=== PATIENT | female | born 1975 | race Caucasian/White ===

== ENCOUNTER 2016-10-31 23:04 | Emergency (ER) | payer OTHER ==
[2016-11-01 06:58] LABS: Appearance,Urine Clear (Clear); Bilirubin,Urine Negative (Negative); Glucose,Urine (UA) Negative (Negative); Ketones,Urine Trace (Negative); Leukocyte Esterase,Urine Negative (Negative); Mucus,Urine Rare /hpf; Nitrite,Urine Negative (Negative); PH, Urine 5.5 (5.0-8.0); Particle Count 2370; Protein,Urine Negative (Negative); RBC,Urine <1 /hpf (0-5); Specific Gravity,Urine 1.022 (1.001-1.035); Squamous Epithelial Cell,Urine 5 /hpf (0-4); UA Billing (MACRO vs. MICRO) CHEM; Urobilinogen,Urine <2.0 mg/dL (<2.0); WBC,Urine 1 /hpf (0-5)
--- NOTE | 2016-11-01 11:29 | US ---
EXAMINATION TYPE: US OB <= 14 wk fetus DATE OF EXAM: 11/01/2016 8:29 AM COMPARISON: NONE CLINICAL HISTORY: Left sided cramping. EXAM PERFORMED: Transabdominal Ultrasound EXAM MEASUREMENTS: GESTATIONAL AGE / DATING Physician Established: Not Established Dates by LMP: Unknown Dates by First Scan: No previous. Dates by Current Scan for: (10 weeks/6 days) EDC: 05/23/2017 MATERNAL ANATOMY Uterus: 8.6 x 6.3 x 7.8 cm Right Ovary: 3.5 x 2.0 x 1.9 cm Left Ovary: 3.1 x 1.5 x 1.9 cm Post CDS / Adnexa: WNL Presence of free fluid: No Presence of corpus luteal cyst: No Presence of subchorionic bleed: No GESTATION / SURVEY CRL: 3.9 (10 weeks/6 days) Yolk Sac (normal less than 6mm): 4 mm Heart Rate: 174 bpm Rhythm: Normal IUP: Single Date of LMP: Unknown Beta HcG (if available): Not available Viable IUP with an SINCERE of 05/23/2017 on this exam. IMPRESSION: The ultrasound gestational age is 10 weeks 6 days. I see no complicating process.
--- NOTE | 2016-11-13 15:20 | ED ---
Female Urogenital HPI - General Source: RN notes reviewed, old records reviewed - History of Present Illness Initial comments: This is a 41-year-old female presenting to emergency Department with chief complaint of vaginal bleeding and lower abdominal cramping for approximately one day. Patient reports that she is currently . She denies any fever or chills. He denies any dysuria or nausea or vomiting. She denies any vaginal discharge. Review of Systems ROS Statement: Those systems with pertinent positive or pertinent negative responses have been documented in the HPI. ROS Other: All systems not noted in ROS Statement are negative. General Exam General appearance: alert, in no apparent distress Head exam: Present: atraumatic, normocephalic, normal inspection Eye exam: Present: normal appearance, PERRL, EOMI. Absent: scleral icterus, conjunctival injection, periorbital swelling ENT exam: Present: normal exam, mucous membranes moist Neck exam: Present: normal inspection. Absent: tenderness, meningismus, lymphadenopathy Respiratory exam: Present: normal lung sounds bilaterally. Absent: respiratory distress, wheezes, rales, rhonchi, stridor Cardiovascular Exam: Present: regular rate, normal rhythm, normal heart sounds. Absent: systolic murmur, diastolic murmur, rubs, gallop, clicks GI/Abdominal exam: Present: soft, normal bowel sounds. Absent: distended, tenderness, guarding, rebound, rigid External exam: Present: normal external exam Speculum exam: Present: normal speculum exam By manual exam: Present: normal by manual exam Extremities exam: Present: normal inspection, full ROM, normal capillary refill. Absent: tenderness, pedal edema, joint swelling, calf tenderness Back exam: Present: normal inspection Neurological exam: Present: alert, oriented X3, CN II-XII intact Psychiatric exam: Present: normal affect, normal mood Skin exam: Present: warm, dry, intact, normal color. Absent: rash Medical Decision Making - Medical Decision Making Patient is a 41-year-old female chief complaint of vaginal bleeding and lower pelvic discomfort. She is currently 11 weeks .Ultrasound shows gestational age of 10 weeks and 6 days. No complicating process Estimated delivery date of 05/23/17. Patient's urinalysis is negative for any acute process. The hCG is 118,000. Patient is a positive. Discussed that this is a miscarriage at this time. Discussed that she needs repeat blood work. Patient remained plan will comply. Return parameters were discussed. - Lab Data Lab Results 10/31/16 10/31/16 10/31/16 Range/Units 23:33 23:33 23:33 HCG, Quant 887457.0 mIU/mL Urine Color Yellow Urine Appearance Clear (Clear) Urine pH 5.5 (5.0-8.0) Ur Specific [place] 1.022 (1.001-1.035) Urine Protein Negative (Negative) Urine Glucose (UA) Negative (Negative) Urine Ketones Trace H (Negative) Urine Blood Negative (Negative) Urine Nitrite Negative (Negative) Urine Bilirubin Negative (Negative) Urine Urobilinogen <2.0 (<2.0) mg/dL Ur Leukocyte Esterase Negative (Negative) Urine RBC <1 (0-5) /hpf Urine WBC 1 (0-5) /hpf Ur Squamous Epith Cells 5 H (0-4) /hpf Urine Mucus Rare H (None) /hpf Blood Type A Positive Blood Type Recheck CABO Indicated Antibody Screen NEGATIVE Spec Expiration Date 11/03/2016 - 6246 Interpretation: subendocardial ischemia - Radiology Data Radiology results: report reviewed Ultrasound shows gestational age of 11 weeks. No acute process. Disposition Clinical Impression: Abdominal cramping affecting , Threatened miscarriage Disposition: HOME SELF-CARE Condition: Good Instructions: Threatened Miscarriage (ED) Referrals: Nonstaff,Physician [Primary Care Provider] - 1-2 days Luli Elaine DO [Doctor of Osteopathic Medicine] - 1-2 days Time of Disposition: 15:20
== END 2016-11-01 01:03 | disposition home or self-care (01) ==
LOC: EC 23:04
DX: O99.89 Other specified diseases and conditions complicating pregnancy, childbirth and the puerperium (principal); R10.2 Pelvic and perineal pain; O99.331 Smoking (tobacco) complicating pregnancy, first trimester; Z71.6 Tobacco abuse counseling; F17.200 Nicotine dependence, unspecified, uncomplicated; Z3A.10 10 weeks gestation of pregnancy; Z90.49 Acquired absence of other specified parts of digestive tract
CPT/HCPCS: 36415; 76801; 81003; 84702; 86850; 86900; 86901; 99284